=== PATIENT | female | born 1955 | race Caucasian/White ===

== ENCOUNTER → 2024-11-27 15:41 | Outpatient (REF) | payer MEDICARE, SELFPAY | LOC: MRI 3T 15:41 | PROVIDERS: ATTENDING PHYSICIAN Electrodiagnostic Medicine | DX: G35 Multiple sclerosis (principal) | CPT/HCPCS: 72157; A9575 ==

== ENCOUNTER → 2024-11-28 11:15 | Outpatient (REF) | payer MEDICARE, SELFPAY | LOC: PAVMRI 11:15 | PROVIDERS: ATTENDING PHYSICIAN Electrodiagnostic Medicine | DX: G35 Multiple sclerosis (principal) | CPT/HCPCS: 70553; 72156; A9575 ==